=== PATIENT | male | born 1955 | race Caucasian/White ===

== ENCOUNTER → 2021-10-09 | Outpatient (CLI) | payer BC, MEDICARE ==
[2021-10-09 14:39] LABS: BASO # 0.1 x10^3/uL (0.0-0.2); BASO % 1 % (0-3); EOS # 0.3 x10^3/uL (0.0-0.7); EOS % 4 % (0-3); HEMATOCRIT 39.1 % (39.0-53.0); LYMPH # 1.2 x10^3/uL (1.0-4.8); LYMPH % 18 % (24-48); MEAN CORPUSCULAR HEMOGLOBIN 30 pg (25-35); MEAN CORPUSCULAR HGB CONC 33 g/dL (31-37); MEAN CORPUSCULAR VOLUME 90 fL (79-100); MONO # 0.7 x10^3/uL (0.0-1.1); MONO % 11 % (0-9); NEUT # 4.2 x10^3uL (1.8-7.7); NEUT % 66 % (31-73); PLATELET COUNT 217 x10^3/uL (140-400); RED BLOOD COUNT 4.33 x10^6/uL (4.30-5.70); RED CELL DISTRIBUTION WIDTH 13.7 % (11.5-14.5); WHITE BLOOD COUNT 6.4 x10^3/uL (4.0-11.0)
[2021-10-09 14:57] LABS: ALBUMIN 2.2 g/dL (3.4-5.0); ALBUMIN/GLOBULIN RATIO 0.4 (1.0-1.7); C REACTIVE PROTEIN 31.6 mg/L (0-3.3); CALCIUM 8.1 mg/dL (8.5-10.1); CREATININE 0.8 mg/dL (0.7-1.3); TOTAL BILIRUBIN 0.4 mg/dL (0.2-1.0); TOTAL PROTEIN 7.5 g/dL (6.4-8.2)
--- NOTE | 2021-10-09 16:44 | RAD ---
History: Chronic hip and knee pain from old injury. Comparison: None. Technique: AP view the pelvis and AP view of the proximal femora. Cone-down frog-leg lateral views of the right hip and left hip. Bilateral knee radiographs in the AP, oblique and lateral projections. Findings: Decreased osseous mineralization. There are bilateral total hip arthroplasties. The right acetabular and femoral components appear well seated without evidence of loosening. Mild dystrophic calcificatio ns at the right hip. The left hip arthroplasty demonstrates multiple proximal femur cerclage wires with longstem femoral c omponent extending through the distal femur to the anterior tibial tubercle. There is diffuse lucency surrounding the intramedullary stem of the left femoral component. Irregular left femur cortical brandyn ency. Irregular osseous fragments at the superior aspect of the left femur and dystrophic calcificati ons extending at the inferior aspect of the left femoral neck component. Degenerative changes of the lower lumbar spine. Prominent right colonic stool burden. The right knee demonstrates medial tibiofemoral compartment narrowing and small tricompartmental oste ophytes. No right knee effusion. The left knee demonstrates diffuse osteopenia with left femoral stem component extending through the distal femur adjacent to the lateral aspect of the left tibial tubercle. There is left tibiofemoral c ompartment narrowing. Irregular appearance of the articular side of the left patella. Small left effu lyndon. Impression: 1. Left total hip arthroplasty with long stem component extending through the distal femur to the ti bial tubercle. No comparison is available however there is lucency surrounding the femoral stem and i rregular appearance of the adjacent femoral cortex concerning for loosening or infection. Femoral ian m extending through the distal femoral cortex into the knee articular space likely impinges upon left knee mobility which demonstrates tricompartmental degenerative/posttraumatic changes. 2. Irregular osseous fragments and abutment dystrophic ossification at the left femoral neck compone nt. 3. The expected appearance of right total hip arthroplasty. 4. Mild degenerative changes of the right knee. Electronically signed by: Tushar Encarnacion MD (10/09/2021 4:42 PM) [id number]
[2021-10-10 19:15] LABS: CHOLESTEROL/HDL RATIO 2.9; FREE T4 1.17 ng/dL (0.76-1.46); THYROID STIM HORMONE (TSH) 0.722 uIU/mL (0.358-3.740)
== END ==
LOC: LAB 12:19
PROVIDERS: ATTEND Family Medicine
DX: M17.11 Unilateral primary osteoarthritis, right knee (principal); M17.12 Unilateral primary osteoarthritis, left knee; M16.11 Unilateral primary osteoarthritis, right hip; M25.761 Osteophyte, right knee; J45.991 Cough variant asthma; M85.88 Other specified disorders of bone density and structure, other site
CPT/HCPCS: 36415; 73521; 73562; 80053; 80061; 84439; 84443; 85025; 86140; G0103